=== PATIENT | male | born 1950 | race African-American/Black ===

== ENCOUNTER 2025-03-11 10:32 | Inpatient (IN) | payer MEDICARE ==
[~2025-03-11] VITALS: Ht 172.7 cm; Wt 76.7 kg
[2025-03-11 11:03] LABS: PLATELET COUNT (AUTO) 178 K/uL (150-450); RED BLOOD CELL COUNT(AUTO) 4.58 MIL/uL (4.5-6.0); RED CELL DISTRIBUTION WIDTH 13.1 % (11.5-15.0); WHITE BLOOD COUNT (AUTO) 5.7 K/uL (4.3-11.0)
[2025-03-11 11:12] LABS: CALCIUM, SERUM 9.2 mg/dL (8.5-10.1); CREATININE 1.5 mg/dL (0.6-1.3); SODIUM SERUM 138 mmol/L (136-145); UREA NITROGEN, BLOOD 17 mg/dL (7-18)
[2025-03-11 11:17] LABS: ALCOHOL, BLOOD < 3 mg/dL (0-10); ASPARTATE AMINOTRANSFERASE 15 U/L (15-37); TOTAL PROTEIN, SERUM 7.1 g/dL (6.4-8.2)
[2025-03-11 14:25] LABS: APPEARANCE,URINE CLEAR (CLEAR); BLOOD, URINE TRACE-INTA Ery/uL (NEGATIVE); LEUKOCYTE ESTERASE ,URINE NEGATIVE (NEGATIVE); NITRITE, URINE NEGATIVE (NEGATIVE); UGLUCOSE NEGATIVE (NEGATIVE)
[2025-03-11 14:30] LABS: ADD URINE CULTURE NO
[2025-03-11 14:41] LABS: AMPHETAMINE, URINE NEGATIVE (NEGATIVE); BARBITURATE, URINE NEGATIVE (NEGATIVE); BENZODIAZEPINE, URINE NEGATIVE (NEGATIVE); COCCAINE, URINE NEGATIVE (NEGATIVE); OPIATE, URINE NEGATIVE (NEGATIVE)
[2025-03-11 14:42] LABS: CANNABINOID, URINE POSITIVE (NEGATIVE)
[2025-03-11 16:00] VITALS: BP 150/93; TEMP 97.7; O2SAT 99
[2025-03-11 16:10] VITALS: BP 150/93; TEMP 97.7; O2SAT 99
[2025-03-11] MEDS ORDERED: LORAZEPAM 1 MG TABLET PO PRN (17:30)
[2025-03-11] MEDS ORDERED: TEMAZEPAM 7.5 MG CAPSULE PO PRN (17:30)
[2025-03-11] MEDS: BLOOD SUGAR DIAGNOSTIC 1 EACH STRIP IN ONE (17:41)
[2025-03-11 19:45] VITALS: BP 160/77; TEMP 97.7; O2SAT 100
[2025-03-12 07:52] VITALS: BP 116/116; TEMP 97.6; O2SAT 97
[2025-03-12 09:36] LABS: ASPARTATE AMINOTRANSFERASE 17 U/L (15-37); CALCIUM, SERUM 8.6 mg/dL (8.5-10.1); CREATININE 1.2 mg/dL (0.6-1.3); SODIUM SERUM 137 mmol/L (136-145); TOTAL PROTEIN, SERUM 6.5 g/dL (6.4-8.2); UREA NITROGEN, BLOOD 20 mg/dL (7-18)
[2025-03-12 12:08] LABS: LDL 78 mg/dL (0-99)
[2025-03-12] MEDS: QUETIAPINE FUMARATE 25 MG TABLET PO SCH (13:09)
[2025-03-12 15:48] VITALS: BP 179/78; TEMP 97.9; O2SAT 99
[2025-03-12] MEDS: AMLODIPINE BESYLATE 5 MG TABLET PO SCH (16:21)
[2025-03-12 20:32] VITALS: BP 174/71; TEMP 97.5; O2SAT 100
[2025-03-12 21:00] VITALS: BP 147/73; TEMP 97.5; O2SAT 100
[2025-03-12] MEDS: TEMAZEPAM 7.5 MG CAPSULE PO SCH (21:32)
[2025-03-13 08:00] VITALS: BP 145/90; TEMP 98.7; O2SAT 100
[2025-03-13] MEDS: LORAZEPAM 0.5 MG TABLET PO PRN (11:11)
[2025-03-13 16:00] VITALS: BP_SYST 128; BP_SYST 150; BP_DIAS 65; BP_DIAS 83; TEMP 97.5; TEMP 98.5; O2SAT 100; O2SAT 96
[2025-03-13 19:54] VITALS: BP 160/70; TEMP 98.4; O2SAT 100
[2025-03-13 21:36] VITALS: BP 145/72; TEMP 98; O2SAT 98
[2025-03-14 08:21] VITALS: BP 122/90; TEMP 97.8; O2SAT 100
[2025-03-14 16:00] VITALS: BP 131/73; TEMP 98; O2SAT 99
[2025-03-14] MEDS: QUETIAPINE FUMARATE 25 MG TABLET PO SCH (16:49)
[2025-03-14 20:20] VITALS: BP 138/90; TEMP 98.5; O2SAT 99
[2025-03-15 08:10] VITALS: BP 142/90; TEMP 98; O2SAT 99
[2025-03-15] MEDS: ACETAMINOPHEN 325 MG TABLET PO PRN (14:52)
[2025-03-15 16:00] VITALS: BP 146/73; TEMP 98.1; O2SAT 98
[2025-03-15 19:53] VITALS: BP 140/68; TEMP 98; O2SAT 100
[2025-03-15] MEDS: MAGNESIUM HYDROXIDE 30 ML UDC PO PRN (20:25)
[2025-03-16] MEDS: IBUPROFEN 400 MG TABLET PO ONE (06:00)
[2025-03-16 08:00] VITALS: BP 157/88; TEMP 97.8; O2SAT 100
[2025-03-16 16:00] VITALS: BP 155/85; TEMP 98.1; O2SAT 100
[2025-03-16 19:58] VITALS: BP 126/71; TEMP 98.2; O2SAT 100
[2025-03-17 08:00] VITALS: BP 130/81; TEMP 98; O2SAT 96
[2025-03-17] MEDS: MAG HYDROX/AL HYDROX/SIMETH 30 ML UDC PO PRN (09:47)
[2025-03-17 16:00] VITALS: BP 161/68; TEMP 97.7; O2SAT 99
[2025-03-17 20:42] VITALS: BP 142/73; TEMP 97.7; O2SAT 98
[2025-03-18 08:00] VITALS: BP 155/65; TEMP 97.7; O2SAT 96
[2025-03-18 16:00] VITALS: BP 134/69; TEMP 97.7; O2SAT 99
[2025-03-18] MEDS ORDERED: AMLO-212 PO (18:03)
== END 2025-03-18 17:55 | disposition home or self-care (01) | DRG 885 ==
LOC: ER 10:49 → GPS 14:50
PROVIDERS: ADMIT Psychiatry & Neurology Psychiatry; ATTEND Nurse Practitioner Acute Care
DX: F29 Unspecified psychosis not due to a substance or known physiological condition (principal); N18.9 Chronic kidney disease, unspecified; N17.0 Acute kidney failure with tubular necrosis; G93.40 Encephalopathy, unspecified; F03.918 Unspecified dementia, unspecified severity, with other behavioral disturbance; F12.10 Cannabis abuse, uncomplicated; I12.9 Hypertensive chronic kidney disease with stage 1 through stage 4 chronic kidney disease, or unspecified chronic kidney disease; F03.92 Unspecified dementia, unspecified severity, with psychotic disturbance; E78.49 Other hyperlipidemia; Z73.6 Limitation of activities due to disability; E78.5 Hyperlipidemia, unspecified
CPT/HCPCS: 36415; 70450-TC; 71045-TC; 80048-TC; 80053-TC; 80061-TC; 80076-TC; 81001; 82962-TC; 85025-TC; 87081-TC; 97110-TC; 97116-TC; 97530-TC; G0480

== ENCOUNTER 2025-03-21 15:03 | Inpatient (IN) | payer MEDICARE ==
[~2025-03-21] VITALS: Ht 177.8 cm; Wt 72.6 kg
[~2025-03-21 15:03] MED LIST: AMLO-212 PO
[2025-03-21] MEDS ORDERED: OLANZAPINE 5 MG TABLET ONE (15:38)
[2025-03-21] MEDS: OLANZAPINE 5 MG TABLET PO ONE (15:44)
[2025-03-21 16:03] LABS: PLATELET COUNT (AUTO) 136 K/uL (150-450); RED BLOOD CELL COUNT(AUTO) 4.41 MIL/uL (4.5-6.0); RED CELL DISTRIBUTION WIDTH 13.2 % (11.5-15.0); WHITE BLOOD COUNT (AUTO) 9.5 K/uL (4.3-11.0)
[2025-03-21 16:14] LABS: CALCIUM, SERUM 8.9 mg/dL (8.5-10.1); CREATININE 1.5 mg/dL (0.6-1.3); SODIUM SERUM 137 mmol/L (136-145); UREA NITROGEN, BLOOD 28 mg/dL (7-18)
[2025-03-21 16:20] LABS: ALCOHOL, BLOOD < 3 mg/dL (0-10); ASPARTATE AMINOTRANSFERASE 19 U/L (15-37); TOTAL PROTEIN, SERUM 7.3 g/dL (6.4-8.2)
[2025-03-21 16:45] LABS: APPEARANCE,URINE CLEAR (CLEAR); BLOOD, URINE Negative Ery/uL (NEGATIVE); LEUKOCYTE ESTERASE ,URINE Negative (NEGATIVE); NITRITE, URINE NEGATIVE (NEGATIVE); UGLUCOSE Negative (NEGATIVE)
[2025-03-21 16:46] LABS: ADD URINE CULTURE NO; SQUAMOUS EPITHELIAL CELL,UR Few /HPF (None Seen)
[2025-03-21] MEDS ORDERED: EMPA10TA PO (16:51)
[2025-03-21] MEDS ORDERED: ASPI-1169 PO (16:51)
[2025-03-21] MEDS ORDERED: QUET400T PO (16:51)
[2025-03-21] MEDS ORDERED: BACL10TA PO (16:51)
[2025-03-21] MEDS ORDERED: TAMS-12 PO (16:51)
[2025-03-21] MEDS ORDERED: METO25TA6 PO (16:51)
[2025-03-21] MEDS ORDERED: OMEP20TA20 PO (16:51)
[2025-03-21 16:59] LABS: AMPHETAMINE, URINE NEGATIVE (NEGATIVE); BARBITURATE, URINE NEGATIVE (NEGATIVE); BENZODIAZEPINE, URINE NEGATIVE (NEGATIVE); CANNABINOID, URINE NEGATIVE (NEGATIVE); COCCAINE, URINE NEGATIVE (NEGATIVE); OPIATE, URINE NEGATIVE (NEGATIVE)
[2025-03-21 18:03] VITALS: O2SAT 99
[2025-03-21] MEDS ORDERED: LORAZEPAM 1 MG TABLET PO PRN (20:30)
[2025-03-21] MEDS ORDERED: MAGNESIUM HYDROXIDE 30 ML UDC PO PRN (20:30)
[2025-03-21] MEDS ORDERED: MAG HYDROX/AL HYDROX/SIMETH 30 ML UDC PO PRN (20:30)
[2025-03-21] MEDS ORDERED: TEMAZEPAM 7.5 MG CAPSULE PO PRN (20:30)
[2025-03-21] MEDS: BLOOD SUGAR DIAGNOSTIC 1 EACH STRIP IN ONE (22:26)
[2025-03-21] MEDS: TAMSULOSIN 0.4 MG CAP.SR.24H PO SCH (23:27)
[2025-03-22] MEDS: TEMAZEPAM 7.5 MG CAPSULE PO PRN (02:45)
[2025-03-22] MEDS: PANTOPRAZOLE 40 MG TABLET.DR PO SCH (06:36)
[2025-03-22 08:00] VITALS: BP 157/100; TEMP 97.9; O2SAT 100
[2025-03-22] MEDS: ASPIRIN 81 MG TAB.CHEW PO SCH (08:52)
[2025-03-22] MEDS: AMLODIPINE BESYLATE 5 MG TABLET PO SCH (08:52)
[2025-03-22] MEDS: QUETIAPINE FUMARATE 25 MG TABLET PO SCH (10:30)
[2025-03-22 16:00] VITALS: BP 159/90; TEMP 98.6; O2SAT 100
[2025-03-22 20:00] VITALS: BP 149/82; TEMP 98.1; O2SAT 100
[2025-03-23 08:00] VITALS: BP 161/86; TEMP 97.7; O2SAT 100
[2025-03-23 08:32] LABS: PLATELET COUNT (AUTO) 174 K/uL (150-450); RED BLOOD CELL COUNT(AUTO) 4.32 MIL/uL (4.5-6.0); RED CELL DISTRIBUTION WIDTH 13.1 % (11.5-15.0); WHITE BLOOD COUNT (AUTO) 6.3 K/uL (4.3-11.0)
[2025-03-23 09:16] LABS: CREATINE KINASE, TOTAL 280.0 U/L (39-308)
[2025-03-23 10:06] LABS: PHOSPHORUS 2.8 mg/dL (2.5-4.9)
[2025-03-23] MEDS: AMLODIPINE BESYLATE 5 MG TABLET PO ONE (12:53)
[2025-03-23 16:00] VITALS: BP 158/80; TEMP 98.4; O2SAT 100
[2025-03-23 20:58] VITALS: BP 159/87; TEMP 98.4; O2SAT 99
[2025-03-24 08:00] VITALS: BP 169/88; TEMP 97.9; O2SAT 99
[2025-03-24 08:23] LABS: PLATELET COUNT (AUTO) 188 K/uL (150-450); RED BLOOD CELL COUNT(AUTO) 4.53 MIL/uL (4.5-6.0); RED CELL DISTRIBUTION WIDTH 12.8 % (11.5-15.0); WHITE BLOOD COUNT (AUTO) 6.8 K/uL (4.3-11.0)
[2025-03-24 09:56] LABS: ASPARTATE AMINOTRANSFERASE 14.0 U/L (15-37); CALCIUM, SERUM 9.1 mg/dL (8.5-10.1); CREATININE 1.2 mg/dL (0.6-1.3); PHOSPHORUS 2.8 mg/dL (2.5-4.9); SODIUM SERUM 136.0 mmol/L (136-145); TOTAL PROTEIN, SERUM 7.2 g/dL (6.4-8.2); UREA NITROGEN, BLOOD 16.0 mg/dL (7-18)
[2025-03-24 14:00] VITALS: BP 184/86; TEMP 97.2; O2SAT 100
[2025-03-24] MEDS: QUETIAPINE FUMARATE 25 MG TABLET PO SCH (16:05)
[2025-03-24 18:35] VITALS: BP 152/72
[2025-03-24 20:32] VITALS: BP 134/65; TEMP 98.3; O2SAT 100
[2025-03-25 06:11] LABS: PTH, INTACT 18 pg/mL (15-65)
[2025-03-25 08:00] VITALS: BP 154/84; TEMP 97.8; O2SAT 99
[2025-03-25] MEDS: AMLODIPINE BESYLATE 5 MG TABLET PO SCH (08:37)
[2025-03-25 16:07] VITALS: BP 148/76; TEMP 98.1; O2SAT 100
[2025-03-25 20:54] VITALS: BP 138/88; TEMP 98.1; O2SAT 100
[2025-03-26 08:00] VITALS: BP 137/80; TEMP 97.3; O2SAT 98
[2025-03-26 16:00] VITALS: BP 132/87; TEMP 98.1; O2SAT 99
[2025-03-26] MEDS: QUETIAPINE FUMARATE 25 MG TABLET PO SCH (16:26)
[2025-03-26 21:04] VITALS: BP 138/67; TEMP 97.7; O2SAT 100
[2025-03-27 07:50] VITALS: BP 155/80; TEMP 98.1; O2SAT 99
[2025-03-27 15:42] VITALS: BP 130/77; TEMP 98.5; O2SAT 100
[2025-03-27 20:10] VITALS: BP 152/86; TEMP 98.5; O2SAT 100
[2025-03-27] MEDS: QUETIAPINE FUMARATE 25 MG TABLET PO SCH (21:28)
[2025-03-28 04:07] LABS: *SPE A/G RATIO 1.2 (0.7-1.7); *SPE ALBUMIN 3.5 g/dL (2.9-4.4); *SPE ALPHA-1-GLOBULIN 0.2 g/dL (0.0-0.4); *SPE ALPHA-2-GLOBULIN 0.7 g/dL (0.4-1.0); *SPE BETA GLOBULIN 0.9 g/dL (0.7-1.3); *SPE GLOBULIN, TOTAL 2.9 g/dL (2.2-3.9); *SPE M-SPIKE Not Observed g/dL (Not Observed); *SPE PROTEIN TOTAL 6.4 g/dL (6.0-8.5); *SPEGAMMA GLOBULIN 1.1 g/dL (0.4-1.8)
[2025-03-28 08:00] VITALS: BP 163/142; TEMP 98.2; O2SAT 96
[2025-03-28 16:00] VITALS: BP 144/80; TEMP 98; O2SAT 99
[2025-03-28 20:00] VITALS: BP 156/78; TEMP 97.8; O2SAT 100
[2025-03-28] MEDS: LORAZEPAM 0.5 MG TABLET PO PRN (23:59)
[2025-03-29 08:00] VITALS: BP 166/77; TEMP 98.2; O2SAT 99
[2025-03-29 16:00] VITALS: BP 138/75; TEMP 97.9; O2SAT 98
[2025-03-29 20:59] VITALS: BP 155/64; TEMP 97.7; O2SAT 100
[2025-03-29] MEDS: QUETIAPINE FUMARATE 25 MG TABLET PO SCH (21:10)
[2025-03-30] MEDS: ACETAMINOPHEN 325 MG TABLET PO PRN (01:59)
[2025-03-30 07:55] VITALS: BP 156/79; TEMP 97.9; O2SAT 99
[2025-03-30 16:00] VITALS: BP 151/70; TEMP 98.8; O2SAT 98
[2025-03-30 20:00] VITALS: BP 140/81; TEMP 98.1; O2SAT 99
[2025-03-30] MEDS: QUETIAPINE FUMARATE 25 MG TABLET PO SCH (21:15)
[2025-03-31 08:00] VITALS: BP 161/77; TEMP 97.9; O2SAT 98
[2025-03-31] MEDS ORDERED: QUET50TA PO ×2 (12:05)
[2025-03-31 16:00] VITALS: BP 135/74; TEMP 97.9; O2SAT 100
[2025-03-31 20:22] VITALS: BP 139/75; TEMP 97.9; O2SAT 99
[2025-04-01 08:00] VITALS: BP 104/84; TEMP 97.7; O2SAT 99
[2025-04-01 09:07] VITALS: BP 130/80
== END 2025-04-01 11:45 | disposition home or self-care (01) | DRG 885 ==
LOC: ER 15:11 → GPS 19:48
PROVIDERS: ADMIT Psychiatry & Neurology Psychiatry; ATTEND Nurse Practitioner Family
DX: F29 Unspecified psychosis not due to a substance or known physiological condition (principal); N18.9 Chronic kidney disease, unspecified; N17.0 Acute kidney failure with tubular necrosis; G93.41 Metabolic encephalopathy; F03.92 Unspecified dementia, unspecified severity, with psychotic disturbance; D69.6 Thrombocytopenia, unspecified; E86.0 Dehydration; I12.9 Hypertensive chronic kidney disease with stage 1 through stage 4 chronic kidney disease, or unspecified chronic kidney disease; E83.89 Other disorders of mineral metabolism
CPT/HCPCS: 36415; 70450-TC; 80048-TC; 80053-TC; 80076-TC; 81001; 82550-TC; 82607-TC; 82962-TC; 83735-TC; 83970; 84100-TC; 84155; 84165; 84439-TC; 84443-TC; 84481; 85025-TC; 97112-TC; 97116-TC; 97530-TC; G0480